=== PATIENT | male | born 1970 | race Caucasian/White ===

== ENCOUNTER 2021-02-16 16:39 | Emergency (ER) | payer OTHER, SELFPAY | END 2021-02-16 18:30 | disposition home or self-care (01) | LOC: ERS 16:39 | DX: M25.512 Pain in left shoulder (principal); I10 Essential (primary) hypertension; F17.210 Nicotine dependence, cigarettes, uncomplicated | CPT/HCPCS: 36415; 71045; 80053; 84484; 85025; 93005 ==

== ENCOUNTER 2021-05-24 15:48 | Outpatient (CLI) | payer OTHER | END 2021-05-24 15:49 | disposition home or self-care (01) | LOC: RAD-FRANK 15:48 | PROVIDERS: ATTEND Registered Nurse Community Health | DX: R06.02 Shortness of breath (principal); J90 Pleural effusion, not elsewhere classified; R91.8 Other nonspecific abnormal finding of lung field | CPT/HCPCS: 71046 ==

== ENCOUNTER 2021-05-24 17:11 | Inpatient (IN) | payer OTHER, SELFPAY ==
[~2021-05-24 17:11] MED LIST: Iopamidol-370 76% 500 ML 1 ML ONE
[2021-05-24 18:26] LABS: #Eosinphils 0.1 thou/uL (0.0-0.7); #Lymphocytes 1.4 thou/uL (1.20-3.40); #Neutrophils 7.2 thou/uL (1.40-6.50); %Basophils 0.4 % (0.0-1.0); %Eosinophils 0.9 % (0.0-10.0); %Lymphocytes 14.3 % (21.0-51.0); %Monocytes 10.7 % (0.0-10.0); %Neutrophils 73.7 % (42.0-75.0); Hemoglobin 10.4 g/dL (14.0-18.0); Mean Corpuscular HGB CONC 31.7 g/dL (32.0-36.0); Mean Corpuscular Hemoglobin 27.5 pg (27.0-31.0); Mean Corpuscular Volume 86.7 fL (78.0-98.0); Mean Platelet Volume 6.1 fL (7.4-10.4); Platelet Count 520 thou/uL (130-400); RBC Distribution Width 13.3 % (11.5-14.5); Red Blood Cell (RBC) Count 3.78 mill/uL (4.70-6.10); White Blood Cell (WBC) Count 9.7 thou/uL (4.8-10.8)
[2021-05-24 18:44] LABS: ALT (SGPT) 12 U/L (8-55); AST (SGOT) 25 U/L (5-34); Albumin 3.3 g/dL (3.5-5.0); Alkaline Phosphatase 215 U/L (40-110); Anion Gap 14 mmol/L (10-20); BUN (Urea Nitrogen) 17 mg/dL (8.9-20.6); Bilirubin, Total 0.3 mg/dL (0.2-1.2); Calc. Creatinine Clearance 0 mL/min (70-130); Carbon Dioxide 27 mmol/L (22-29); Chloride 102 mmol/L (98-107); Globulin 2.8 g/dL (2.4-3.5); Glucose 161 mg/dL (70-105); Potassium 3.7 mmol/L (3.5-5.1); Protein, Total 6.1 g/dL (6.0-8.3); Sodium 139 mmol/L (136-145)
[2021-05-24] MEDS ORDERED: cefTRIAXone\\ROCEPHIN 1 GM VIAL ONE (20:57)
[2021-05-24] MEDS ORDERED: Azithromycin 500 MG VIAL ONE (21:32)
[2021-05-24 23:45] VITALS: BMI 29.9
[2021-05-24] MEDS ORDERED: Ondansetron PF 4 MG/2 ML Vial IVP PRN (23:53)
[2021-05-24] MEDS ORDERED: Acetaminophen 325 MG TAB PO PRN (23:53)
[2021-05-25] MEDS ORDERED: Sodium Chloride 0.9% 1,000 ML IV SCH (00:15)
[2021-05-25] MEDS ORDERED: Albuterol Sulfate 2.5 mg/3 ml Neb NEB PRN (00:34)
[2021-05-25] MEDS: Cefepime 1 GM in Sodium Chloride 0.9% 100 ML IVPB SCH ×2 (02:59→13:58)
[2021-05-25] MEDS: methylPREDNISolone Sod Succ 40 MG VIAL IVP SCH ×2 (05:30→11:53)
[2021-05-25] MEDS: VANCOMYCIN 1.75 GM/350 ML BAG 1.75 GM in Premix Bag 1 BAG IVPB SCH ×2 (05:30→15:12)
[2021-05-25 07:07] LABS: #Eosinphils 0.1 thou/uL (0.0-0.7); #Lymphocytes 1.2 thou/uL (1.20-3.40); #Neutrophils 6.7 thou/uL (1.40-6.50); %Basophils 0.1 % (0.0-1.0); %Eosinophils 1.5 % (0.0-10.0); %Lymphocytes 13.2 % (21.0-51.0); %Monocytes 10.7 % (0.0-10.0); %Neutrophils 74.5 % (42.0-75.0); Hemoglobin 9.9 g/dL (14.0-18.0); Mean Corpuscular HGB CONC 31.9 g/dL (32.0-36.0); Mean Corpuscular Hemoglobin 27.8 pg (27.0-31.0); Mean Corpuscular Volume 87.3 fL (78.0-98.0); Mean Platelet Volume 6.1 fL (7.4-10.4); Platelet Count 499 thou/uL (130-400); RBC Distribution Width 13.3 % (11.5-14.5); Red Blood Cell (RBC) Count 3.56 mill/uL (4.70-6.10); White Blood Cell (WBC) Count 8.9 thou/uL (4.8-10.8)
[2021-05-25 07:17] LABS: Hemoglobin A1c 5.6 % (4.0-6.0)
[2021-05-25 07:32] LABS: Anion Gap 12 mmol/L (10-20); BUN (Urea Nitrogen) 13 mg/dL (8.9-20.6); Calc. Creatinine Clearance 150 mL/min (70-130); Carbon Dioxide 28 mmol/L (22-29); Chloride 103 mmol/L (98-107); Glucose 105 mg/dL (70-105); Iron 14 ug/dL (65-175); Potassium 3.5 mmol/L (3.5-5.1); Sodium 139 mmol/L (136-145)
[2021-05-25 07:56] LABS: Ferritin 695.24 ng/mL (22-322)
[2021-05-25] MEDS: Divalproex Sodium DR 500 MG TAB PO SCH ×3 (08:45→21:28)
[2021-05-25] MEDS: OLANZapine 5 MG TAB PO SCH ×2 (08:45→21:28)
[2021-05-25] MEDS: lamoTRIgine 100 MG TAB PO SCH (08:46)
[2021-05-25] MEDS: Benztropine 1 MG TAB PO SCH (08:46)
[2021-05-25] MEDS: busPIRone HCl 10 MG TAB PO SCH ×3 (08:46→21:29)
[2021-05-25] MEDS: Folic Acid 1 MG TAB PO SCH (09:32)
[2021-05-25] MEDS: Multivit, Therapeutic 1 TAB PO SCH (09:32)
[2021-05-25] MEDS ORDERED: Polyethylene Glycol 3350 17 GM Packet PO SCH (11:30)
[2021-05-25] MEDS: Sodium Chloride 0.9% 1,000 ML IV SCH (13:58)
[2021-05-25 15:40] LABS: RBC Count-Automated (BF) 34339 /cu.mm; WBC/Nucleated-Auto (BF) 2435 uL
[2021-05-25 15:41] LABS: Fluid, pH - Pleural Fld 7.27 (7.60 - 7.66)
[2021-05-25 15:45] LABS: BF Color Red; Body Fluid Source Pleural Fluid; Clarity Cloudy/Turbid (Clear); Tube # EDTA
[2021-05-25 15:46] LABS: Fluid, Triglycerides 58 mg/dL (Not Available); Pleural Fluid, Amylase Less than 30 U/L (Not Available); Pleural Fluid, Glucose 156 mg/dL; Pleural Fluid, LDH 150 U/L (Not Available); Pleural Fluid, Protein 3.4 g/dL
[2021-05-25 16:00] LABS: BF Segmented Neutrophils 44 %; Cell Count Non Hematic 42 %; Eosinophils 2 %; Lymphocytes 11 %
[2021-05-25] MEDS ORDERED: cefTRIAXone\\ROCEPHIN 1 GM in Sodium Chloride 0.9% 100 ML IVPB SCH (21:00)
[2021-05-25] MEDS: Senokot S 8.6-50 MG TAB PO SCH (21:29)
[2021-05-25] MEDS ORDERED: Azithromycin 500 MG in Sodium Chloride 0.9% 250 ML 250 ML IVPB SCH (22:00)
[2021-05-25 22:43] LABS: SARS-CoV-2 NAA Rapid Test Not Detected (NotDetected)
[2021-05-26] MEDS: Cefepime 1 GM in Sodium Chloride 0.9% 100 ML IVPB SCH ×2 (01:20→19:43)
[2021-05-26] MEDS: VANCOMYCIN 1.75 GM/350 ML BAG 1.75 GM in Premix Bag 1 BAG IVPB SCH ×3 (03:02→21:40)
[2021-05-26 06:03] LABS: #Lymphocytes 1.2 thou/uL (1.20-3.40); #Monocytes 1.1 thou/uL (0.11-0.59); #Neutrophils 9.3 thou/uL (1.40-6.50); %Basophils 0.2 % (0.0-1.0); %Eosinophils 0.3 % (0.0-10.0); %Lymphocytes 10.6 % (21.0-51.0); %Monocytes 9.7 % (0.0-10.0); %Neutrophils 79.3 % (42.0-75.0); Hemoglobin 9.4 g/dL (14.0-18.0); Mean Corpuscular HGB CONC 31.8 g/dL (32.0-36.0); Mean Corpuscular Hemoglobin 27.6 pg (27.0-31.0); Mean Corpuscular Volume 86.8 fL (78.0-98.0); Mean Platelet Volume 6.4 fL (7.4-10.4); Platelet Count 496 thou/uL (130-400); RBC Distribution Width 13.6 % (11.5-14.5); Red Blood Cell (RBC) Count 3.41 mill/uL (4.70-6.10); White Blood Cell (WBC) Count 11.8 thou/uL (4.8-10.8)
[2021-05-26 06:34] LABS: ALT (SGPT) 19 U/L (8-55); AST (SGOT) 37 U/L (5-34); Albumin 2.9 g/dL (3.5-5.0); Alkaline Phosphatase 163 U/L (40-110); Anion Gap 14 mmol/L (10-20); BUN (Urea Nitrogen) 12 mg/dL (8.9-20.6); Bilirubin, Total 0.2 mg/dL (0.2-1.2); CRP (Inflammatory) 17.44 mg/dL (= or < 0.5); Calc. Creatinine Clearance 129 mL/min (70-130); Calcium 8.3 mg/dL (7.8-10.44); Carbon Dioxide 24 mmol/L (22-29); Chloride 103 mmol/L (98-107); Globulin 3.4 g/dL (2.4-3.5); Glucose 297 mg/dL (70-105); Potassium 3.8 mmol/L (3.5-5.1); Protein, Total 6.3 g/dL (6.0-8.3); Sodium 137 mmol/L (136-145)
[2021-05-26] MEDS: Divalproex Sodium DR 500 MG TAB PO SCH ×3 (08:05→20:45)
[2021-05-26] MEDS: Sodium Chloride 0.9% 1,000 ML IV SCH (08:05)
[2021-05-26] MEDS: busPIRone HCl 10 MG TAB PO SCH ×3 (08:05→20:44)
[2021-05-26] MEDS: Senokot S 8.6-50 MG TAB PO SCH ×2 (08:05→20:44)
[2021-05-26] MEDS: OLANZapine 5 MG TAB PO SCH ×2 (08:05→20:45)
[2021-05-26] MEDS ORDERED: EPINEPHrine 1 MG/ML AMP ONE (13:49)
[2021-05-26] MEDS ORDERED: Bupivacaine PF 0.5% 30 ML VIAL ONE (13:49)
[2021-05-26] MEDS ORDERED: Fentanyl 100 MCG/2 ML VIAL ONE (13:56)
[2021-05-26] MEDS ORDERED: Lidocaine 1% PF 5 ML VIAL ONE (14:25)
[2021-05-26] MEDS ORDERED: PHENYLEPHRINE-NS 100 MCG/ML 10 ML SYRINGE ONE (14:25)
[2021-05-26] MEDS ORDERED: PROPOFOL 200 MG/20 ML VIAL ONE (14:25)
[2021-05-26] MEDS ORDERED: Dexamethasone 20 MG/5 ML VIAL ONE (14:25)
[2021-05-26] MEDS ORDERED: Rocuronium Bromide 10 MG/ML (10ML VIAL) ONE (14:25)
[2021-05-26] MEDS ORDERED: Ondansetron PF 4 MG/2 ML Vial ONE (14:25)
[2021-05-26] MEDS ORDERED: HYDROmorphone 0.5 MG/0.5 ML SYRINGE ONE (15:35)
[2021-05-26] MEDS ORDERED: Promethazine HCl 25 MG/ML VIAL IM PRN (17:34)
[2021-05-26] MEDS ORDERED: HYDROcodone/Acetaminophen 7.5/325 mg Tablet PO PRN (17:34)
[2021-05-26] MEDS ORDERED: HYDROmorphone 2 MG/ML VIAL SLOW IVP PRN (17:34)
[2021-05-26] MEDS ORDERED: Fentanyl 100 MCG/2 ML VIAL SLOW IVP PRN (17:34)
[2021-05-26] MEDS ORDERED: Dextrose 50% Abboject 50 ML SYRINGE SLOW IVP PRN (17:34)
[2021-05-26] MEDS ORDERED: Insulin Regular 300 UNITS/3 ML VIAL SC PRN (17:34)
[2021-05-26] MEDS ORDERED: Ondansetron HCl/PF 4 MG/2 ML Vial IVP PRN (17:34)
[2021-05-26] MEDS ORDERED: Promethazine HCl 25 MG/ML VIAL IVPB PRN (17:34)
[2021-05-26] MEDS ORDERED: Dextrose 5% in Water 1,000 ML IV PRN (17:34)
[2021-05-26] MEDS ORDERED: PACU-Morphine 4MG/ML VIAL SLOW IVP PRN (17:34)
[2021-05-26] MEDS: Benztropine 1 MG TAB PO SCH (18:09)
[2021-05-26] MEDS: Folic Acid 1 MG TAB PO SCH (18:10)
[2021-05-26] MEDS: lamoTRIgine 100 MG TAB PO SCH (18:10)
[2021-05-26] MEDS: Multivit, Therapeutic 1 TAB PO SCH (18:10)
[2021-05-26] MEDS: Polyethylene Glycol 3350 17 GM Packet PO SCH (18:10)
[2021-05-26] MEDS: Ketorolac Tromethamine 30 MG/ML VIAL IVP SCH (19:43)
[2021-05-26] MEDS: HYDROcodone/Acetaminophen 7.5/325 mg Tablet PO PRN (20:54)
[2021-05-26] MEDS ORDERED: NPH, Human Insulin Isophane 300 UNIT/3 ML VIAL SC SCH (23:00)
[2021-05-27] MEDS: Ketorolac Tromethamine 30 MG/ML VIAL IVP SCH ×4 (00:40→18:39)
[2021-05-27] MEDS: CEFEPIME HCL IN DEXTROSE 5 % 1 GM in Premix Bag 1 BAG IVPB SCH ×2 (00:42→12:40)
[2021-05-27] MEDS: HYDROcodone/Acetaminophen 7.5/325 mg Tablet PO PRN ×3 (02:28→10:49)
[2021-05-27] MEDS: Sodium Chloride 0.9% 1,000 ML IV SCH (05:10)
[2021-05-27 05:29] LABS: #Lymphocytes 1.3 thou/uL (1.20-3.40); #Monocytes 1.2 thou/uL (0.11-0.59); #Neutrophils 6.6 thou/uL (1.40-6.50); %Basophils 0.2 % (0.0-1.0); %Eosinophils 0.3 % (0.0-10.0); %Monocytes 13.2 % (0.0-10.0); %Neutrophils 72.2 % (42.0-75.0); Hemoglobin 9.8 g/dL (14.0-18.0); Mean Corpuscular HGB CONC 32.1 g/dL (32.0-36.0); Mean Corpuscular Hemoglobin 27.8 pg (27.0-31.0); Mean Corpuscular Volume 86.4 fL (78.0-98.0); Mean Platelet Volume 6.1 fL (7.4-10.4); Platelet Count 533 thou/uL (130-400); RBC Distribution Width 13.8 % (11.5-14.5); Red Blood Cell (RBC) Count 3.52 mill/uL (4.70-6.10); White Blood Cell (WBC) Count 9.1 thou/uL (4.8-10.8)
[2021-05-27 05:53] LABS: ALT (SGPT) 14 U/L (8-55); AST (SGOT) 34 U/L (5-34); Albumin 2.9 g/dL (3.5-5.0); Alkaline Phosphatase 143 U/L (40-110); Anion Gap 14 mmol/L (10-20); BUN (Urea Nitrogen) 14 mg/dL (8.9-20.6); Bilirubin, Total 0.3 mg/dL (0.2-1.2); Calc. Creatinine Clearance 138 mL/min (70-130); Calcium 8.2 mg/dL (7.8-10.44); Carbon Dioxide 26 mmol/L (22-29); Chloride 101 mmol/L (98-107); Globulin 3.3 g/dL (2.4-3.5); Glucose 144 mg/dL (70-105); Potassium 4.3 mmol/L (3.5-5.1); Protein, Total 6.2 g/dL (6.0-8.3); Sodium 137 mmol/L (136-145)
[2021-05-27] MEDS: OLANZapine 5 MG TAB PO SCH ×2 (10:29→20:19)
[2021-05-27] MEDS: lamoTRIgine 100 MG TAB PO SCH (10:29)
[2021-05-27] MEDS: Divalproex Sodium DR 500 MG TAB PO SCH ×3 (10:30→20:19)
[2021-05-27] MEDS: Multivit, Therapeutic 1 TAB PO SCH (10:30)
[2021-05-27] MEDS: Folic Acid 1 MG TAB PO SCH (10:30)
[2021-05-27] MEDS: busPIRone HCl 10 MG TAB PO SCH ×3 (10:30→20:19)
[2021-05-27] MEDS: Benztropine 1 MG TAB PO SCH (10:31)
[2021-05-27] MEDS: VANCOMYCIN 1.75 GM/350 ML BAG 1.75 GM in Premix Bag 1 BAG IVPB SCH ×2 (10:31→20:20)
[2021-05-27] MEDS: methylPREDNISolone Sod Succ 40 MG VIAL IVP SCH (10:31)
[2021-05-27] MEDS: Senokot S 8.6-50 MG TAB PO SCH ×2 (10:50→20:18)
[2021-05-27] MEDS: Polyethylene Glycol 3350 17 GM Packet PO SCH (10:50)
[2021-05-27] MEDS: Insulin Regular 300 UNITS/3 ML VIAL SC PRN ×2 (18:37→21:00)
[2021-05-28] MEDS: CEFEPIME HCL IN DEXTROSE 5 % 1 GM in Premix Bag 1 BAG IVPB SCH ×2 (00:05→12:47)
[2021-05-28] MEDS: Ketorolac Tromethamine 30 MG/ML VIAL IVP SCH ×4 (00:05→17:56)
[2021-05-28 06:35] LABS: HIV (1/2) Antibody/Antigen Non-Reactive (NonReactive); HIV 1/2 INDEX 0.08 S/CO (<1.00)
[2021-05-28 09:16] LABS: Vancomycin, Trough 12.9 ug/mL
[2021-05-28] MEDS: HYDROcodone/Acetaminophen 7.5/325 mg Tablet PO PRN ×2 (09:41→17:57)
[2021-05-28] MEDS: methylPREDNISolone Sod Succ 40 MG VIAL IVP SCH (09:49)
[2021-05-28] MEDS: Benztropine 1 MG TAB PO SCH (09:50)
[2021-05-28] MEDS: Divalproex Sodium DR 500 MG TAB PO SCH ×3 (09:51→20:31)
[2021-05-28] MEDS: OLANZapine 5 MG TAB PO SCH ×2 (09:51→20:31)
[2021-05-28] MEDS: Multivit, Therapeutic 1 TAB PO SCH (09:52)
[2021-05-28] MEDS: lamoTRIgine 100 MG TAB PO SCH (09:52)
[2021-05-28] MEDS: busPIRone HCl 10 MG TAB PO SCH ×3 (09:52→20:31)
[2021-05-28] MEDS: VANCOMYCIN 1.75 GM/350 ML BAG 1.75 GM in Premix Bag 1 BAG IVPB SCH (09:53)
[2021-05-28] MEDS: Folic Acid 1 MG TAB PO SCH (09:53)
[2021-05-28] MEDS: Senokot S 8.6-50 MG TAB PO SCH ×2 (11:07→20:33)
[2021-05-28] MEDS: Polyethylene Glycol 3350 17 GM Packet PO SCH (11:07)
[2021-05-28] MEDS: Insulin Regular 300 UNITS/3 ML VIAL SC PRN ×3 (12:47→20:32)
[2021-05-28] MEDS: Amoxicillin/Potassium Clav 875 MG TAB PO SCH (20:32)
[2021-05-28] MEDS: VANCOMYCIN 2 GRAM/400 ML BAG 2 GM in Premix Bag 1 BAG IVPB SCH (20:32)
[2021-05-29] MEDS: Ketorolac Tromethamine 30 MG/ML VIAL IVP SCH ×5 (00:10→17:31)
[2021-05-29] MEDS: lamoTRIgine 100 MG TAB PO SCH (08:27)
[2021-05-29] MEDS: Senokot S 8.6-50 MG TAB PO SCH ×2 (08:27→21:04)
[2021-05-29] MEDS: Benztropine 1 MG TAB PO SCH (08:27)
[2021-05-29] MEDS: Amoxicillin/Potassium Clav 875 MG TAB PO SCH ×2 (08:27→21:04)
[2021-05-29] MEDS: Polyethylene Glycol 3350 17 GM Packet PO SCH (08:27)
[2021-05-29] MEDS: busPIRone HCl 10 MG TAB PO SCH ×3 (08:28→21:04)
[2021-05-29] MEDS: OLANZapine 5 MG TAB PO SCH ×2 (08:28→21:04)
[2021-05-29] MEDS: Multivit, Therapeutic 1 TAB PO SCH (08:28)
[2021-05-29] MEDS: methylPREDNISolone Sod Succ 40 MG VIAL IVP SCH (08:28)
[2021-05-29] MEDS: Divalproex Sodium DR 500 MG TAB PO SCH ×3 (08:28→21:04)
[2021-05-29] MEDS: Folic Acid 1 MG TAB PO SCH (08:28)
[2021-05-29] MEDS: VANCOMYCIN 2 GRAM/400 ML BAG 2 GM in Premix Bag 1 BAG IVPB SCH (08:29)
[2021-05-29] MEDS: HYDROcodone/Acetaminophen 7.5/325 mg Tablet PO PRN ×3 (11:04→22:25)
[2021-05-29] MEDS: Insulin Regular 300 UNITS/3 ML VIAL SC PRN (12:14)
[2021-05-30] MEDS: Ketorolac Tromethamine 30 MG/ML VIAL IVP SCH ×3 (00:30→12:59)
[2021-05-30] MEDS: Polyethylene Glycol 3350 17 GM Packet PO SCH (08:51)
[2021-05-30] MEDS: busPIRone HCl 10 MG TAB PO SCH ×2 (08:51→14:18)
[2021-05-30] MEDS: Amoxicillin/Potassium Clav 875 MG TAB PO SCH (08:51)
[2021-05-30] MEDS: Benztropine 1 MG TAB PO SCH (08:51)
[2021-05-30] MEDS: lamoTRIgine 100 MG TAB PO SCH (08:51)
[2021-05-30] MEDS: Senokot S 8.6-50 MG TAB PO SCH (08:52)
[2021-05-30] MEDS: Multivit, Therapeutic 1 TAB PO SCH (08:52)
[2021-05-30] MEDS: Folic Acid 1 MG TAB PO SCH (08:52)
[2021-05-30] MEDS: Divalproex Sodium DR 500 MG TAB PO SCH ×2 (08:52→14:18)
[2021-05-30] MEDS: OLANZapine 5 MG TAB PO SCH (08:52)
[2021-05-30] MEDS: HYDROcodone/Acetaminophen 7.5/325 mg Tablet PO PRN (12:59)
[2021-05-30 15:25] VITALS: BP 109/67; TEMP 97.5
[2021-05-31 11:15] LABS: Fungus Stain Final report (.)
== END 2021-05-30 15:15 | DRG 163 ==
LOC: ERS 17:11 → EEVIPCON 17:11 → T4-B 20:50 → SURG B 05-26 18:51 → SURG A 05-26 19:38
PROVIDERS: ADMIT Student in an Organized Health Care Education/Training Program; ATTEND Internal Medicine
PROC: 0W9B3ZX Drainage of Left Pleural Cavity, Percutaneous Approach, Diagnostic (ICD-10-PCS; 2021-05-25)
PROC: 0BNJ0ZZ Release Left Lower Lung Lobe, Open Approach (ICD-10-PCS; principal; 2021-05-26)
PROC: 0BNG0ZZ Release Left Upper Lung Lobe, Open Approach (ICD-10-PCS; 2021-05-26)
PROC: 0BJL4ZZ Inspection of Left Lung, Percutaneous Endoscopic Approach (ICD-10-PCS; 2021-05-26)
DX: J15.6 Pneumonia due to other Gram-negative bacteria (principal); J86.9 Pyothorax without fistula; A41.50 Gram-negative sepsis, unspecified; J91.8 Pleural effusion in other conditions classified elsewhere; Z20.822 Contact with and (suspected) exposure to COVID-19; E53.8 Deficiency of other specified B group vitamins; F20.9 Schizophrenia, unspecified; F41.9 Anxiety disorder, unspecified; F31.9 Bipolar disorder, unspecified; F12.10 Cannabis abuse, uncomplicated; R73.9 Hyperglycemia, unspecified; D64.9 Anemia, unspecified; J94.1 Fibrothorax; Z90.49 Acquired absence of other specified parts of digestive tract; Z87.891 Personal history of nicotine dependence; Z79.899 Other long term (current) drug therapy; Z53.32 Thoracoscopic surgical procedure converted to open procedure
CPT/HCPCS: 36415; 36416; 71045; 71046; 71275; 80048; 80053; 80202; 82150; 82607; 82728; 82746; 82945; 83036; 83540; 83605; 83615; 83880; 83986; 84157; 84478; 84484; 85025; 85060; 86140; 86850; 86900; 86901; 87040; 87070; 87076; 87077; 87102; 87116; 87186; 87205; 87206; 87389; 87556; 88112; 89051; 93005; 94640; 94760; J0171; J0456; J0692; J0696; J1100; J1170; J1642; J1815; J1885; J1956; J2405; J2704; J2920; J3010; J3370; J3490; J7620; Q9967; S0020; U0002; U0005